=== PATIENT | male | born 1935 | race African-American/Black ===

== ENCOUNTER 2019-12-15 14:37 | Emergency (ER) | payer MEDICARE ==
[~2019-12-15] VITALS: Ht 177.8 cm; Wt 77.0 kg
[2019-12-15 14:45] VITALS: BP 119/62
== END 2019-12-15 16:58 | disposition left against medical advice (07) ==
LOC: ER 15:31
DX: R55 Syncope and collapse (principal); Z53.21 Procedure and treatment not carried out due to patient leaving prior to being seen by health care provider